=== PATIENT | female | born 1975 | race African-American/Black ===

== ENCOUNTER 2017-08-06 01:01 | Emergency (ER) | payer MEDICAID ==
[~2017-08-06] VITALS: Ht 160 cm; Wt 86.2 kg
[2017-08-06] MEDS ORDERED: NKM (01:21)
[2017-08-06 01:41] VITALS: BP 114/71
[2017-08-06] MEDS ORDERED: KENALOG 0.025%15 GM APPLIC (02:29)
[2017-08-06] MEDS ORDERED: BENADRYL25 M3 PO (02:29)
--- NOTE | 2017-08-06 02:33 | Emergency Room Report ---
History of Present Illness General Chief Complaint: Skin Rash/Abscess Source: Patient Present Illness HPI 42yo healthy female no medical problems, presents with itching, no rash Started after being exposed to bedbugs, and her cousin has a rash so she came to get checked out too symptoms started after sitting on a bed Allergies: Coded Allergies: No Known Allergies (Unverified , 08/06/17) Patient History Past Medical History: see triage record Last Menstrual Period: June Reviewed Nursing Documentation: PMH: Agreed; PSxH: Agreed Nursing Documentation-PMH Past Medical History: No Stated History Review of Systems All Other Systems: negative except mentioned in HPI Physical Exam Vital Signs Date Time Temp Pulse Resp B/P (MAP) Pulse Ox O2 Delivery O2 Flow Rate FiO2 08/06/17 01:20 96.8 77 18 114/71 98 Room Air 96.8 Sp02 EP Interpretation: reviewed, normal General Appearance: no apparent distress, alert, non-toxic Head: normocephalic Eyes: bilateral eye normal inspection, bilateral eye PERRL, bilateral eye EOMI ENT: normal ENT inspection, hearing grossly normal, normal pharynx, no angioedema, normal voice, moist mucus membranes Neck: normal inspection, full range of motion, supple, supple/symm/no masses Respiratory: chest non-tender, lungs clear, normal breath sounds, respiratory distress, chest symmetrical, palpation of chest normal Cardiovascular #1: normal peripheral pulses, regular rate, rhythm Cardiovascular #2: 2+ radial (R), 2+ radial (L) Gastrointestinal: normal inspection, non tender, soft, no mass, no guarding, no rebound Rectal: deferred Genitourinary: normal inspection, no CVA tenderness Musculoskeletal: back normal, gait/station normal, normal range of motion Neurologic: alert, responsive, rat breeder III-XII nml as tested, motor strength/tone normal, sensory intact, speech normal Psychiatric: judgement/insight normal, memory normal, mood/affect normal Skin: normal color, no rash, warm/dry, normal turgor Lymphatic: no adenopathy Medical Decision Making Diagnostic Impression: Primary Impression: Bedbug bite ER Course Patient with no rash, but she reports itching, she is here with a cousin who has obvious bedbug bites as they were in a hotel room tonight and the cousin had a bites Last Vital Signs Date Time Temp Pulse Resp B/P (MAP) Pulse Ox O2 Delivery O2 Flow Rate FiO2 08/06/17 01:41 96.8 77 18 114/71 98 Room Air 96.8 Disposition: HOME, SELF-CARE Condition: Stable Scripts Diphenhydramine HCl (Benadryl) 25 Mg Capsule 25 MG PO QID for 5 Days, CAP Prov: ISABELL BERMEO M.D 08/06/17 Triamcinolone Acet (Triamcinolone Acetonide) 15 Gm Cream..g. 15 GM APPLIC TID for 7 Days, GM Prov: ISABELL BERMEO M.D 08/06/17 Patient Instructions: Aris, [id number] ISABELL BERMEO M.D August 06, 2017 02:33
[2017-08-06 02:39] VITALS: BP 114/71
== END 2017-08-06 02:40 | disposition home or self-care (01) ==
LOC: EMR 02:09
DX: T14.8XXA Other injury of unspecified body region, initial encounter (principal); W57.XXXA Bitten or stung by nonvenomous insect and other nonvenomous arthropods, initial encounter; Y92.9 Unspecified place or not applicable; R21 Rash and other nonspecific skin eruption
CPT/HCPCS: 99284